=== PATIENT | female | born 1960 | race Caucasian/White ===

== ENCOUNTER 2016-07-18 20:58 | Emergency (ER) | payer OTHER ==
[~2016-07-18] VITALS: Ht 165.1 cm; Wt 94.3 kg
[~2016-07-18 20:58] MED LIST: ESTR1TAB15 PO; LEVO100T5 PO; LISI-334 PO; MELO-150 PO; ONDA4TAB7 PO; OXYC-323 PO; PHEN37.53 PO; PROG100C7 PO; THYR60TA PO; TRIA1TAB2 PO
[2016-07-18 21:00] VITALS: BP 149/96
--- NOTE | 2016-07-18 23:21 | RAD ---
INDICATION: Leg pain. Swelling. COMPARISON: None TECHNIQUE: Grayscale, color and spectral doppler ultrasound images are obtained through the right leg deep venous system. FINDINGS: Thrombus is seen within the right superficial femoral vein, popliteal vein and extending into the calf veins. Thrombus in the lesser saphenous vein. IMPRESSION: Thrombus seen extending from the distal aspect of the right superficial femoral vein through the calf veins. Electronically signed by: Sherwin Pierson (Jul 18, 2016 23:19:58)
--- NOTE | 2016-07-18 23:28 | PHYS DOC ---
General Chief Complaint: LOWER EXTREMITY SWELLING Stated Complaint: RIGHT LEG SWELLING Time Seen by MD: 21:53 Source: patient Exam Limitations: no limitations Problems: History of Present Illness Initial Comments Pt is 55/F to ED c/o right lower leg swelling. Pt states for the past three weeks she's had increasing right calf/ankle discomfort. She has past right ankle injury, thought she may have aggravated it. She noted right ankle swelling so she began using GORDY wrap. Worsening of right calf pain/stiffness, pt daughter is PT and insisted she come for evaluation. No prolonged sitting, no tobacco or h/o coagulopathy. No other prearrival treatment, no cp/sob/vela/focal neurodef. Onset: other (3 wks) Severity: moderate Pain/Injury Location: right leg Method of Injury: unknown Modifying Factors: worse with jarring, worse with movement, improves with rest Allergies: Coded Allergies: No Known Drug Allergies (Unverified , 08/27/15) Past Medical History Medical History: no pertinent history Surgical History: no surgical history Social History Smoker: non-smoker Alcohol: none Drugs: none Review of Systems Constitutional: denies chills, denies fever, denies malaise Respiratory: denies cough, denies shortness of breath Cardiovascular: denies chest pain, denies palpitations Gastrointestinal: denies abdominal pain, denies nausea, denies vomiting Genitourinary: denies dysuria, denies frequency, denies hematuria Musculoskeletal: see HPI Psychiatric/Neurological: denies numbness, denies paresthesia, denies tingling , denies weakness Physical Exam General Appearance: WD/WN, no apparent distress HEENT: normal ENT inspection Neck: non-tender, supple Cardiovascular/Respiratory: normal peripheral pulses, no respiratory distress Back: no CVA tenderness, no vertebral tenderness Legs: right leg other (R leg circumference 2cm > L, + dawn) Neurologic/Tendon: normal sensation, normal motor functions, normal tendon functions, responds to pain, no evidence tendon injury Psychiatric: alert, oriented x 3 Skin: normal color, warm/dry Orders, Labs, Meds PATIENT: ASIA BAE ACCOUNT: [id number] : 1960 LOCATION: ER AGE: 55 SEX: F EXAM STATUS: REG ER ORD. PHYSICIAN: AKANKSHA MATTHEW DO REASON: R calf swelling/pain PROCEDURE: VENOUS LOWER EXTREMITY RIGHT INDICATION: Leg pain. Swelling. COMPARISON: None TECHNIQUE: Grayscale, color and spectral doppler ultrasound images are obtained through the right leg deep venous system. FINDINGS: Thrombus is seen within the right superficial femoral vein, popliteal vein and extending into the calf veins. Thrombus in the lesser saphenous vein. IMPRESSION: Thrombus seen extending from the distal aspect of the right superficial femoral vein through the calf veins. Electronically signed by: Cesar Granado (Jul 18, 2016 23:19:58) DICTATED AND SIGNED BY: CESAR GRANADO MD DATE: 07/18/162319 CC: MELY JIMÉNEZ; AKANKSHA MATTHEW DO ~ BUN 45, Cr 1.5, d-dimer > 19 Pt advised to aggressively hydrate. I discussed outpt lovenox treatment and close PCP follow up. 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 Pt comfortable going home, expressed agreement/understanding with treatment plan. Departure Time of Disposition: 00:02 Disposition: 01 HOME, SELF-CARE Diagnosis: Right lower leg deep venous thrombosis Condition: STABLE Patient Instructions: Anticoagulation, Generic, Deep Vein Thrombosis Additional Instructions: Please review the patient education materials. OTC tylenol/ibuprofen as needed. Rest, no strenuous activity. Rx: lovenox, use as directed. Follow up with your doctor in 1-2 days for recheck, continued workup, and further treatment plan. Return to ED with new or changing symptoms. AKANKSHA MATTHEW DO Jul 18, 2016 23:28
[2016-07-18 23:30] LABS: BASO # 0.1 x10^3/uL (0.0-0.2); BASO % 1 % (0-3); EOS # 0.2 x10^3/uL (0.0-0.7); EOS % 2 % (0-3); HEMATOCRIT 36.8 % (36.0-47.0); HEMOGLOBIN 12.3 g/dL (12.0-15.5); LYMPH # 2.5 x10^3/uL (1.0-4.8); LYMPH % 26 % (24-48); MEAN CORPUSCULAR HEMOGLOBIN 29 pg (25-35); MEAN CORPUSCULAR HGB CONC 33 g/dL (31-37); MEAN CORPUSCULAR VOLUME 88 fL (79-100); MONO # 0.6 x10^3/uL (0.0-1.1); MONO % 6 % (0-9); NEUT # 6.3 x10^3uL (1.8-7.7); NEUT % 66 % (31-73); PLATELET COUNT 221 x10^3/uL (140-400); RED BLOOD COUNT 4.19 x10^6/uL (3.50-5.40); RED CELL DISTRIBUTION WIDTH 13.8 % (11.5-14.5); WHITE BLOOD COUNT 9.6 x10^3/uL (4.0-11.0)
[2016-07-18 23:40] LABS: CALCIUM 9.1 mg/dL (8.5-10.1); CREATININE 1.7 mg/dL (0.6-1.0); GFR 31.2; POTASSIUM 4.3 mmol/L (3.5-5.1)
[2016-07-19] MEDS ORDERED: ENOXAPARIN ** NOTE DOSE ** SYRINGE SQ ONE (00:30)
== END 2016-07-19 00:23 | disposition home or self-care (01) ==
LOC: ER 21:00
DX: I82.4Z1 Acute embolism and thrombosis of unspecified deep veins of right distal lower extremity (principal)
CPT/HCPCS: 36415; 80048; 82550; 85027; 85379; 85610; 85730; 93971; 96372; 99285; J1650

== ENCOUNTER → 2017-03-01 | Outpatient (CLI) | payer OTHER ==
[~2017-03-01] MED LIST changes: -MELO-150 PO; +MELO15TA23 PO; +PROG100C15 PO; -PROG100C7 PO
--- NOTE | 2017-03-01 15:45 | RAD ---
EXAM: Soft tissue ultrasound right thigh. HISTORY: Palpable foci right proximal thigh. COMPARISON: None. FINDINGS: Sonographic evaluation of the palpable foci along the right anterolateral thigh was performed. At site of concern, there is an isoechoic to slightly hyperechoic region within the subcutaneous fat measuring 1.9 x 2.0 x 0.7 cm. A slightly hyperechoic focus inferior to the site of palpable concern measures 9 x 8 mm. Another lateral and inferior to the site of concern measures 1.5 x 1.6 cm and is also slightly hyperechoic. A tiny hyperechoic focus adjacent to it measures 3 x 3 mm. IMPRESSION: 1. Slightly hyperechoic regions within the subcutaneous fat at and adjacent to the site of palpable concern do not appear encapsulated. These may represent an unencapsulated lipomas, small ecchymoses, or developing regions of fat necrosis. 2. Recommend ongoing clinical follow-up of palpable foci, with imaging reassessment if they are unstable.
== END | disposition home or self-care (01) ==
LOC: US 14:26
PROVIDERS: ATTEND General Practice
DX: R22.41 Localized swelling, mass and lump, right lower limb (principal)
CPT/HCPCS: 76881

== ENCOUNTER → 2017-04-05 | Outpatient (CLI) | payer OTHER ==
--- NOTE | 2017-04-05 13:55 | RAD ---
Lumbar spine, 3 views, 04/05/2017: History: Right hip and back pain The lumbar vertebral heights are well-maintained. There is mild narrowing of multiple disc spaces with moderate scattered marginal spurs. There are mild degenerative changes involving the facet joints in the lower lumbar spine. No fracture or dislocation is identified. The paraspinous soft tissues are unremarkable. IMPRESSION: 1. Mild to moderate scattered degenerative changes. 2. No acute bony abnormality is detected.
--- NOTE | 2017-04-05 13:56 | RAD ---
Pelvis with right hip, 3 views, 04/05/2017: History: Hip pain No fracture or destructive bony lesion is seen. The hip joint spaces are fairly well-maintained with only mild marginal spurring. IMPRESSION: 1. Mild spurring at the hip joints. 2. No acute pelvic or right hip abnormality is detected.
== END | disposition home or self-care (01) ==
LOC: PMG 12:16
PROVIDERS: ATTEND Nurse Practitioner Family
DX: M47.896 Other spondylosis, lumbar region (principal); M46.06 Spinal enthesopathy, lumbar region; M76.891 Other specified enthesopathies of right lower limb, excluding foot
CPT/HCPCS: 72100; 73502

== ENCOUNTER → 2017-04-13 | Outpatient (CLI) | payer OTHER ==
--- NOTE | 2017-04-13 12:29 | RAD ---
Soft tissue ultrasound 04/13/2017 Indication: History of lipomas. Comparison: None available. Technique: Sonographic evaluation of the subcutaneous soft tissues of the back were obtained. Findings: In the area of palpable lump in the right lower posterior subcutis soft tissues there is a 1.2 x 2.0 x 0.8 cm circumscribed hyperechoic mass most suggestive of a lipoma. Similar finding is identified in the left posterior subcutaneous soft tissues with a palpable lump corresponding with a 1.2 x 1.9 x 0.8 cm hyperechoic mass compatible with a lipoma. No suspicious features are identified. No cystic mass or abscess is identified. No associated skin thickening. Impression: Palpable lumps in the subcutaneous soft tissues of the lower back correspond with imaging features suggestive of lipomas.
== END | disposition home or self-care (01) ==
LOC: US 11:00
PROVIDERS: ATTEND Nurse Practitioner Family
DX: D17.9 Benign lipomatous neoplasm, unspecified (principal); R22.1 Localized swelling, mass and lump, neck
CPT/HCPCS: 76536

== ENCOUNTER → 2019-06-20 | Outpatient (CLI) | payer OTHER ==
[~2019-06-20] MED LIST changes: +IOHEXOL 240 MG/ML 50ML VIAL. ONE; -OXYC-323 PO; +OXYC1TAB15 PO
--- NOTE | 2019-06-20 15:27 | RAD ---
CT Abdomen and Pelvis without contrast History: Lower abdominal pain Technique: Noncontrast CT imaging was performed of the abdomen and pelvis. Multiplanar images are reviewed. Exposure: One or more of the following individualized dose reduction techniques were utilized for this examination: 1. Automated exposure control 2. Adjustment of the mA and/or kV according to patient size 3. Use of iterative reconstruction technique. Comparison: None Findings: There is a lobulated contour of both kidneys, difficult to evaluate for underlying lesion. There is no hydronephrosis or renal calculus. Urinary bladder is slightly distended. Accurate evaluation of abdominal visceral organs is limited without intravenous contrast. There is no obvious focal abnormality of the spleen, liver, or pancreas. Gallbladder is present without obvious intraluminal abnormality by CT. There is no adrenal nodularity. Accurate evaluation of bowel is limited without oral contrast. There is no significant free air, free fluid, bowel dilatation. Normal caliber appendix is visualized without adjacent inflammatory change. There is minimal fat in the inguinal canals bilaterally, no bowel. There is facet degenerative change greater inferiorly of the lumbar spine. There is degenerative disc disease greatest L3-4 and L4-5. Impression: 1. There is no significant inflammatory type change, no CT evidence of acute appendicitis. 2. There is no urolithiasis or hydronephrosis, nonspecific lobulated contour of bilateral kidneys which limits accurate evaluation for underlying lesion on noncontrast exam. Urinary bladder is distended. Electronically signed by: Babak Oro MD (06/20/2019 3:24 PM) [id number]
== END | disposition home or self-care (01) ==
LOC: CT 12:36
PROVIDERS: ATTEND Physician Assistant Medical
DX: N32.89 Other specified disorders of bladder (principal); M51.36 Other intervertebral disc degeneration, lumbar region; Q63.1 Lobulated, fused and horseshoe kidney
CPT/HCPCS: 74176

== ENCOUNTER → 2019-08-27 | Outpatient (CLI) | payer OTHER ==
[~2019-08-27] MED LIST changes: -IOHEXOL 240 MG/ML 50ML VIAL. ONE
--- NOTE | 2019-08-27 15:17 | RAD ---
Study: CR CHEST PA LATERAL Indication: Cough. Comparison: None. Findings: The cardiomediastinal silhouette is within the broad range of normal for size. Unremarkable demetrius. Haziness overlying a blunted left costophrenic angle on the PA view. No localized consolidation throughout either lung. No pneumothorax. Grossly intact osseous structures. Impression: Faint haziness overlying the left costophrenic angle which is blunted. Though this blunting could be related to pleural thickening, a very small pleural effusion is not excluded. No consolidation typical of an organizing pneumonia throughout either lung. Short-term follow-up PA and lateral radiographs are recommended to confirm stability or resolution of the blunted left costophrenic angle. Electronically signed by: ANISA CURRIE MD (08/27/2019 3:14 PM) [id number]
== END | disposition home or self-care (01) ==
LOC: PMG 13:32
PROVIDERS: ATTEND Physician Assistant Medical
DX: R06.02 Shortness of breath (principal)
CPT/HCPCS: 71046

== ENCOUNTER → 2019-08-31 | Outpatient (CLI) | payer OTHER ==
--- NOTE | 2019-08-31 09:53 | RAD ---
CT of the chest without contrast: Clinical History: Dyspnea and chest tightness. Axial helical images of the chest were obtained without contrast. FINDINGS: There is a mild pericardial effusion. There mild pleural effusion on the left. The lungs and pleural margins are clear. There is no mediastinal or hilar lymphadenopathy. Impression: 1. Mild pericardial effusion. 2. Mild left pleural effusion. The base of the lungs are seen in the June 20, 2019 CT the abdomen and does not show either of these 2 findings. Consider possible pleurisy or pericarditis. End impression PQRS Compliance Statement: One or more of the following individualized dose reduction techniques were utilized for this examination: 1. Automated exposure control 2. Adjustment of the mA and/or kV according to patient size 3. Use of iterative reconstruction technique Electronically signed by: Lj Tucker III, MD (08/31/2019 9:50 AM) [id number]
== END | disposition home or self-care (01) ==
LOC: CT 09:07
PROVIDERS: ATTEND Physician Assistant Medical
DX: J90 Pleural effusion, not elsewhere classified (principal); I31.3 Pericardial effusion (noninflammatory)
CPT/HCPCS: 71250

== ENCOUNTER → 2020-12-17 | Outpatient (CLI) | payer OTHER ==
[~2020-12-17] MED LIST changes: -LISI-334 PO; +LISI20TA18 PO
--- NOTE | 2020-12-17 16:11 | RAD ---
DATE: 12/17/2020 EXAM: MAMMO EBER SCREENING BILATERAL HISTORY: Screening COMPARISON: 04/29/2016 and 06/21/2014 This study was interpreted with the benefit of Computerized Aided Detection (CAD). Breast Density: SCATTERED The breast parenchyma shows scattered fibroglandular densities. Breast parenchyma level B. FINDINGS: A 3 mm circumscribed mass in the upper outer left breast middle depth with adjacent coarse calcification is stable from 06/21/2014. No suspicious mass, suspicious calcification, or architectural distortion in either breast. IMPRESSION: No change or evidence of malignancy. BI-RADS CATEGORY: 2 BENIGN FINDING(S) RECOMMENDED FOLLOW-UP: 12M 12 MONTH FOLLOW-UP PQRS compliance statement: Patient information was entered into a reminder system with a target due date for the next mammogram. Mammography is a sensitive method for finding small breast cancers, but it does not detect them all and is not a substitute for careful clinical examination. A negative mammogram does not negate a clinically suspicious finding and should not result in delay in biopsying a clinically suspicious abnormality. "Our facility is accredited by the [employer] Mammography Program."
== END ==
LOC: MAMMO 08:37
PROVIDERS: ATTEND Physician Assistant Medical
DX: Z12.31 Encounter for screening mammogram for malignant neoplasm of breast (principal)
CPT/HCPCS: 77063; 77067

== ENCOUNTER 2021-08-10 18:09 | Emergency (ER) | payer OTHER ==
[~2021-08-10] VITALS: Ht 165.1 cm; Wt 106.9 kg
--- NOTE | 2021-08-10 18:38 | PHYS DOC ---
Past History Past Medical History: Hypertension, Hypothyroid, Other Additional Past Medical Histor: BLOOD CLOT 5 YEARS AGO Past Surgical History: Additional Past Surgical Histo: ANKLE SURGERY Alcohol Use: Rarely Drug Use: None Adult General Chief Complaint Chief Complaint: LOWER EXTREMITY SWELLING HPI HPI Patient is a 60-year-old female who presents to the emergency department with a chief complaint of popliteal DVT diagnosed on an outpatient ultrasound earlier today, and was called and directed to the emergency department by her primary care physician. Denies any recent trauma, travels, illness, fevers, abdominal pain, nausea, vomiting, diarrhea. States that she does have some strange feelings in her chest that she has not had before but denies any shortness of breath. Review of Systems Review of Systems Review of systems otherwise unremarkable except noted in HPI Allergies Allergies Allergies Coded Allergies Type Severity Reaction Last Updated Verified No Known Drug Allergies 08/27/15 No Physical Exam Physical Exam Constitutional: Well developed, well nourished, no acute distress, non-toxic appearance. [] HENT: Normocephalic, atraumatic, bilateral external ears normal, oropharynx moist, no oral exudates, nose normal. [] Eyes: conjunctiva normal, no discharge. [] Neck: Normal range of motion, no tenderness, supple, no stridor. [] Cardiovascular:Heart rate regular rhythm, no murmur [] Lungs & Thorax: Bilateral breath sounds clear to auscultation [] Abdomen: soft, no tenderness, no masses, no pulsatile masses. [] Skin: Warm, dry, no erythema, no rash. [] Extremities: No tenderness, no cyanosis, no clubbing, ROM intact, no edema. [] Neurologic: Alert and oriented X 3, normal motor function, normal sensory function, no focal deficits noted. [] Psychologic: Affect normal, judgement normal, mood normal. [] Current Patient Data Vital Signs Vital Signs Date Time Temp Pulse Resp B/P (MAP) Pulse Ox O2 Delivery O2 Flow Rate FiO2 08/10/21 18:26 98.2 76 16 159/87 (111) 96 EKG EKG [] Radiology/Procedures Radiology/Procedures [] Heart Score C/O Chest Pain: No HEART Score for Chest Pain: HEART Score for Chest Pain Response (Comments) Value History Slighlty/Non-Suspicious 0 Age >45 - < 65 1 Risk Factors 1 or 2 Risk Factors 1 Total 2 Risk Factors: Risk Factors: DM, Current or recent (<one month) smoker, HTN, HLP, family history of CAD, obesity. Risk Scores: Risk Factors: DM, Current or recent (<one month) smoker, HTN, HLP, family history of CAD, obesity. Course & Med Decision Making Course & Med Decision Making Patient is a 60-year-old female who presents with a DVT diagnosed today and directed to the emergency department Vital signs notable for hypertension. Physical exam noted above. IVs placed and placed on the monitor. Laboratory analysis including coagulation factors nonconcerning. CT with no PE or other concerning findings Started patient on Eliquis in the emergency department. Given prescription for Eliquis. Gave strict instructions to call primary care physician in the morning to update on diagnosis and treatment and get an appointment for follow-up and reevaluation as soon as possible Gave symptom management recommendations for home. Gave strict return precautions to the ED. Patient grateful, verbalized understanding and agreed with plan of discharge [] Dragon Disclaimer Dragon Disclaimer This electronic medical record was generated, in whole or in part, using a voice recognition dictation system. Departure Departure: Impression: Primary Impression: DVT (deep venous thrombosis) Disposition: HOME / SELF CARE / HOMELESS Condition: STABLE Referrals: JOSE NICK (PCP) Patient Instructions: Deep Vein Thrombosis Additional Instructions: Thank you for coming into the emergency department tonight and allowing us to take care of you. Please read all the attached information very carefully to go back over things we discussed. You were started on Eliquis today. Please take your Eliquis twice daily and do not miss a dose as we discussed. Please keep your legs elevated and use your compression stockings. If not, please try to walk is much as you can. It is very important that you follow-up in the morning with your primary care physician update on your ED visit, diagnosis and medication management and set up an appointment for reevaluation as soon as possible. Please come back to the emergency department immediately with new or concerning symptoms as we discussed. Scripts Apixaban (ELIQUIS) 5 Mg Tablet 10 MG PO BID for DVT for 7 Days, #28 TAB Prov: BULL GALLEGO MD 08/10/21 Apixaban (ELIQUIS) 5 Mg Tablet 5 MG PO BID for DVT for 14 Days, #28 TAB Prov: BULL GALLEGO MD 08/10/21 BULL GALLEGO MD August 10, 2021 18:38
[2021-08-10] MEDS ORDERED: IOHEXOL 350 MG/ML 100 ML VIAL. IV ONE (18:45)
[2021-08-10 19:06] LABS: BASO # 0.1 x10^3/uL (0.0-0.2); BASO % 1 % (0-3); EOS % 0 % (0-3); HEMATOCRIT 42.8 % (36.0-47.0); HEMOGLOBIN 14.1 g/dL (12.0-15.5); LYMPH # 1.9 x10^3/uL (1.0-4.8); LYMPH % 16 % (24-48); MEAN CORPUSCULAR HEMOGLOBIN 29 pg (25-35); MEAN CORPUSCULAR HGB CONC 33 g/dL (31-37); MEAN CORPUSCULAR VOLUME 88 fL (79-100); MONO # 0.6 x10^3/uL (0.0-1.1); MONO % 5 % (0-9); NEUT # 9.6 x10^3uL (1.8-7.7); NEUT % 78 % (31-73); PLATELET COUNT 316 x10^3/uL (140-400); RED BLOOD COUNT 4.87 x10^6/uL (3.50-5.40); RED CELL DISTRIBUTION WIDTH 14.9 % (11.5-14.5); WHITE BLOOD COUNT 12.3 x10^3/uL (4.0-11.0)
[2021-08-10 19:19] LABS: CALCIUM 9.5 mg/dL (8.5-10.1); CREATININE 1.3 mg/dL (0.6-1.0); GFR 41.8; POTASSIUM 4.5 mmol/L (3.5-5.1)
--- NOTE | 2021-08-10 19:47 | RAD ---
Exam: CT of chest with contrast INDICATION: DVT, Back pain TECHNIQUE: Sequential axial images through the chest obtained following the administration of 70 mL o f Isovue-370 IV contrast. Sagittal and coronal reformatted images were reconstructed from the axial d leonila and reviewed. Exposure: One or more of the following in the visualized dose reduction techniques were utilized for this examination: 1. Automated exposure control 2. Adjustment of the MA and/or KV according to patient size 3. Use of iterative of reconstructive technique Comparisons: CT chest 08/31/2019 FINDINGS: Visualized portions are unremarkable. No enlarged mediastinal lymph nodes are identified. Heart size is normal. No pericardial effusion. Thoracic aorta has normal course and caliber. Pulmonar y artery is not enlarged. No pulmonary embolus identified within the main, lobar or segmental pulmona ry arteries. Airways are patent. No consolidation or pneumothorax. No suspicious lung nodules. No pleural effusion or thickening. Visualized upper abdomen is unremarkable. No suspicious osseous lesions or acute fractures. IMPRESSION: No pulmonary embolus identified within the main, lobar or segmental pulmonary arteries. Electronically signed by: Jerri Chino MD (08/10/2021 7:44 PM) [facility]
[2021-08-10] MEDS ORDERED: APIX5TAB3 PO ×2 (20:05→23:14)
[2021-08-10] MEDS ORDERED: APIXABAN 5 MG TABLET. ONE (20:13)
[2021-08-10] MEDS ORDERED: APIXABAN 5 MG TABLET. PO ONE (20:15)
[2021-08-10 20:16] VITALS: BP 160/81
--- NOTE | 2021-08-11 07:26 | EKG ---
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
== END 2021-08-10 20:20 | disposition home or self-care (01) ==
LOC: ER 18:09
DX: I82.439 Acute embolism and thrombosis of unspecified popliteal vein (principal); I10 Essential (primary) hypertension; E03.9 Hypothyroidism, unspecified
CPT/HCPCS: 36415; 71275; 80048; 84484; 85025; 85610; 85730; 93005; 99285; Q9967